=== PATIENT | female | born 1985 | race Caucasian/White ===

== ENCOUNTER → 2020-04-12 | Outpatient (CLI) | payer OTHER ==
[~2020-04-12] MED LIST: ACYCLOVIR400 MG PO; ATIVAN0.5 MG PO; BACTROBAN OINT0.9 GM T; BRIN20TA PO; BUSPAR15 MG PO; FERROUS FUMARA325 MG PO; IBUPROFEN800 MG PO; LATU20TA PO; METROGEL-VAGINA0.75% VG; PAROXETINE10 MG PO; PERCOCET 325 MG1 TA7 PO; RANITIDINE HCL150 M1 PO; RANITIDINE150 MG PO; VALTREX500 MG PO; ZOVIRAX 5%2 GM T
== END | disposition home or self-care (01) ==
LOC: COVID19 11:25
PROVIDERS: ATTEND Student in an Organized Health Care Education/Training Program
DX: U07.1 COVID-19 (principal)